=== PATIENT | female | born 1985 | race Caucasian/White ===

== ENCOUNTER 2016-08-31 10:07 | Emergency (ER) | payer BC, SELFPAY ==
[~2016-08-31 10:07] MED LIST: IBUPROFEN800 M1 PO; NUCYNTA50 M1 PO; PRENATAL VITAM1 EAC5 PO
[2016-08-31 10:58] LABS: BASO % 0.4 % (0-2); EOS % 2.2 % (0-7); EOSINOPHIL ABSOLUTE COUNT 0.1 tho/cmm (0.0-0.7); HCT-HEMATOCRIT 35.8 % (34.0-49.0); HGB-HEMOGLOBIN 12.1 gm/dl (12.0-15.5); IMMATURE GRANULOCYTES ABSOLUTE 0.01 tho/cmm (0-0.03); IMMATURE GRANULOCYTES PERCENT 0.2 % (0-0.3); LYMPH % 33.6 % (20-45); LYMPH ABSOLUTE COUNT 1.5 tho/cmm (0.8-4.5); MCH (MEAN CORPUSCULAR HGB) 29.2 pg (28.0-32.0); MCHC MEAN CORPUSCULAR HGB CONC 33.8 % (32.0-36.0); MCV (MEAN CELL VOLUME) 86.5 fl (82.0-96.0); MONOCYTE ABSOLUTE COUNT 0.4 tho/cmm (0.0-1.2); NEUTROPHIL ABSOLUTE COUNT 2.4 tho/cmm (1.6-8.0); NEUTROPHIL-AUTOMATED 2.4 tho/cmm (1.6-8.0); NEUTROPHILS % 54.6 % (40-80); PLATELET COUNT 176 tho/cmm (150-450); RED BLOOD COUNT 4.14 mil/cmm (4.00-5.20); RED CELL DISTRIBUTION WIDTH 13.2 % (12.4-16.4); WHITE BLOOD COUNT 4.5 tho/cmm (4.0-10.0)
[2016-08-31 11:02] LABS: PREGNANCY-SERUM NEGATIVE (NEGATIVE)
[2016-08-31 11:08] LABS: ALBUMIN 3.7 g/dl (3.5-5.0); ALKALINE PHOSPHATASE 58 U/L (33-138); ALT/SGPT 17 U/L (12-78); ANION GAP 12 mmol/L (0-20); AST/SGOT 11 U/L (10-40); BILIRUBIN,TOTAL 0.2 mg/dl (0-1.5); BLOOD UREA NITROGEN 8 mg/dl (6-24); CALCIUM 8.7 mg/dl (8.5-10.5); CARBON DIOXIDE-VENOUS 24 mmol/L (22-32); CHLORIDE 111 mmol/l (96-110); CREATININE 0.81 mg/dl (0.50-1.10); GLUCOSE 86 mg/dL (70-110); LIPASE 104 U/L (73-393); POTASSIUM 3.7 mmol/L (3.7-5.1); SODIUM 143 mmol/L (135-145); eGFR VALUE FOR BLACK >90 mL/Min
[2016-08-31 11:09] LABS: URINE BILIRUBIN NEGATIVE (NEG); URINE BLOOD LARGE (NEG); URINE GLUCOSE (UA) NEGATIVE (NEG); URINE KETONE NEGATIVE (NEG); URINE LEUKOCYTE ESTERASE NEGATIVE (NEG); URINE NITRITE NEGATIVE (NEG); URINE PROTEIN MODERATE (NEG); URINE SPECIFIC GRAVITY 1.025 (1.003-1.030)
[2016-08-31 11:11] LABS: URINE APPEARANCE HAZY; URINE COLOR YELLOW
[2016-08-31 11:24] LABS: URINE MUCUS 1+; URINE WBC 0 /[HPF] (0-5)
== END 2016-08-31 12:27 ==
LOC: EDMED 10:07
PROVIDERS: Physician Assistant
DX: R10.12 Left upper quadrant pain (principal); Z87.891 Personal history of nicotine dependence; Z88.5 Allergy status to narcotic agent
CPT/HCPCS: J7030; Q9967